=== PATIENT | female | born 1975 | race Two or more races ===

== ENCOUNTER 2018-09-29 13:00 | Inpatient (IN) | payer OTHER ==
[~2018-09-29] VITALS: Ht 162.6 cm; Wt 81.6 kg
[~2018-09-29 13:00] MED LIST: ACETAMINOOPHEN-1 TAB PO; AVAPRO150 MG PO; DICLOFENAC POTA50 MG PO; INDERAL LA120 MG PO
[2018-10-01] MEDS ORDERED: ADVIL100 MG PO (11:51)
[2018-10-01] MEDS ORDERED: IMITREX100 MG PO (11:51)
[2018-10-10] MEDS ORDERED: FLAGYL500MG PO (10:43)
[2018-10-10] MEDS ORDERED: ULTRACET PO (10:43)
[2018-10-10] MEDS ORDERED: COLACE100 MG PO (10:43)
[2018-10-10] MEDS ORDERED: NAPROXEN375 MG PO (10:44)
== END 2018-10-10 11:07 | disposition home or self-care (01) | DRG 743 ==
LOC: OB/GYN 10-08 05:55 → O/R 10-08 05:55 → SURH 10-08 08:45 → ICU 10-08 10:45 → EDSTATUS 10-08 10:45 → CIR.AMB 10-08 10:45 → OB/GYN 10-08 12:05
PROVIDERS: ADMIT Obstetrics & Gynecology
PROC: 0UT70ZZ Resection of Bilateral Fallopian Tubes, Open Approach (ICD-10-PCS; 2018-10-08)
PROC: 0USG0ZZ Reposition Vagina, Open Approach (ICD-10-PCS; 2018-10-08)
PROC: 0UT90ZZ Resection of Uterus, Open Approach (ICD-10-PCS; principal; 2018-10-08 08:45)
DX: D25.1 Intramural leiomyoma of uterus (principal); N92.0 Excessive and frequent menstruation with regular cycle; N94.5 Secondary dysmenorrhea; N81.11 Cystocele, midline; N73.6 Female pelvic peritoneal adhesions (postinfective); N83.8 Other noninflammatory disorders of ovary, fallopian tube and broad ligament; N84.0 Polyp of corpus uteri

== ENCOUNTER 2021-08-27 08:44 | Outpatient (CLI) | payer OTHER ==
[~2021-08-27 08:44] MED LIST changes: +ADVIL100 MG PO; +COLACE100 MG PO; +FLAGYL500MG PO; +IMITREX100 MG PO; +NAPROXEN375 MG PO; +ULTRACET PO
== END 2021-08-27 08:53 | disposition home or self-care (01) ==
LOC: SONOGRAMA 08:44
PROVIDERS: ATTEND Internal Medicine Gastroenterology
DX: R10.13 Epigastric pain (principal); K21.9 Gastro-esophageal reflux disease without esophagitis; Z86.010 Personal history of colon polyps; Z80.0 Family history of malignant neoplasm of digestive organs